=== PATIENT | female | born 1990 | race Two or more races ===

== ENCOUNTER 2016-09-11 08:51 | Outpatient (CLI) | payer MEDICAID ==
[2016-09-11 19:45] LABS: BASOPHILS % (AUTO) 0.6 %; EOSINOPHILS # (AUTO) 0.2 10^3/uL (0.0-0.7); EOSINOPHILS % (AUTO) 2.7 %; HCT - HEMATOCRIT 40.3 % (37.0-47.0); HGB - HEMOGLOBIN 12.9 g/dL (12.0-16.0); LYMPHOCYTES # (AUTO) 2.6 10^3/uL (1.5-3.5); LYMPHOCYTES % (AUTO) 34.6 %; MEAN CORPUSCULAR HEMOGLOBIN 25.6 pg (27.0-31.0); MEAN CORPUSCULAR HGB CONC 31.9 g/dL (32.0-36.0); MEAN CORPUSCULAR VOLUME 80.3 fL (81.0-99.0); MEAN PLATELET VOLUME 9.4 fL (7.9-10.8); MONOCYTES # (AUTO) 0.5 10^3/uL (0.0-1.0); NEUTROPHILS # (AUTO) 4.2 10^3/uL (1.5-6.6); NEUTROPHILS % (AUTO) 56.1 %; NUCLEATED RED BLOOD CELLS AUTO 0.1 /100WBC; RED BLOOD COUNT 5.02 10^6/uL (4.20-5.40); RED CELL DISTRIBUTION WIDTH 16.9 % (12.0-15.0); UNCORRECTED WHITE BLOOD COUNT 7.5 x10^3/uL; WHITE BLOOD COUNT 7.5 x10^3/uL (4.8-10.8)
[2016-09-11 20:14] LABS: HEMOGLOBIN A1C 0.65 g/dL
[2016-09-11 20:15] LABS: ALBUMIN/GLOBULIN RATIO 1.3 (1.0-2.2); BILIRUBIN,TOTAL 0.9 mg/dL (0.2-1.0); BUN - BLOOD UREA NITROGEN 14 mg/dL (6-20); CALCIUM 8.9 mg/dL (8.5-10.3); CARBON DIOXIDE - CO2 26 mmol/L (21-32); CHLORIDE 104 mmol/L (101-111); CHOL/HDL RATIO 5.5 (<4.4); CHOLESTEROL 160 mg/dL; CREATININE 0.8 mg/dL (0.4-1.0); GFR - MDRD 88 (>89); GLUCOSE 104 mg/dL (70-100); HDL CHOLESTEROL 29 mg/dL; POTASSIUM 3.8 mmol/L (3.5-5.0); SODIUM 138 mmol/L (135-145); TOTAL PROTEIN 7.3 g/dL (6.7-8.2); TRIGLYCERIDES 222 mg/dL; VLDL CHOLESTEROL 44 mg/dL
== END 2016-09-11 08:52 | disposition home or self-care (01) ==
LOC: LAB.N 08:51
PROVIDERS: ATTEND Physician Assistant
DX: G47.00 Insomnia, unspecified (principal); E66.01 Morbid (severe) obesity due to excess calories
CPT/HCPCS: 36415; 80053; 80061; 83036; 84443; 85025

== ENCOUNTER 2017-12-19 12:57 | Outpatient (CLI) | payer MEDICAID ==
[2017-12-19 19:31] LABS: BASOPHILS % (AUTO) 0.4 %; CALCIUM 8.9 mg/dL (8.5-10.3); CREATININE 0.7 mg/dL (0.4-1.0); EOSINOPHILS # (AUTO) 0.2 10^3/uL (0.0-0.7); EOSINOPHILS % (AUTO) 2.7 %; HGB - HEMOGLOBIN 13.7 g/dL (12.0-16.0); LYMPHOCYTES # (AUTO) 2.8 10^3/uL (1.5-3.5); LYMPHOCYTES % (AUTO) 37.6 %; MEAN CORPUSCULAR HEMOGLOBIN 27.4 pg (27.0-31.0); MEAN CORPUSCULAR HGB CONC 32.9 g/dL (32.0-36.0); MEAN CORPUSCULAR VOLUME 83.2 fL (81.0-99.0); MEAN PLATELET VOLUME 9.2 fL (7.9-10.8); MONOCYTES # (AUTO) 0.5 10^3/uL (0.0-1.0); MONOCYTES % (AUTO) 7.4 %; NEUTROPHILS # (AUTO) 3.9 10^3/uL (1.5-6.6); NEUTROPHILS % (AUTO) 51.9 %; PLT - PLATELET COUNT 281 10^3/uL (130-450); RED BLOOD COUNT 5.02 10^6/uL (4.20-5.40); RED CELL DISTRIBUTION WIDTH 14.7 % (12.0-15.0); WHITE BLOOD COUNT 7.5 x10^3/uL (4.8-10.8)
== END 2017-12-19 12:58 | disposition home or self-care (01) ==
LOC: LAB.N 12:57
PROVIDERS: ATTEND Physician Assistant Medical
DX: E11.9 Type 2 diabetes mellitus without complications (principal); J45.998 Other asthma; E66.01 Morbid (severe) obesity due to excess calories
CPT/HCPCS: 36415; 80048; 84443; 85025

== ENCOUNTER 2017-12-31 15:46 | Outpatient (CLI) | payer MEDICAID ==
[2017-12-31 19:33] LABS: HB2 TOTAL 14.3 g/dL; HEMOGLOBIN A1C 0.91 g/dL
== END 2017-12-31 15:47 | disposition home or self-care (01) ==
LOC: LAB.N 15:46
PROVIDERS: ATTEND Physician Assistant Medical
DX: E11.9 Type 2 diabetes mellitus without complications (principal)
CPT/HCPCS: 36415; 83036

== ENCOUNTER 2018-07-15 08:00 | Outpatient (CLI) | payer MEDICAID ==
[2018-07-15 20:00] LABS: HB2 TOTAL 14.6 g/dL; HEMOGLOBIN A1C 0.86 g/dL; HEMOGLOBIN A1C % 7.5 % (4.6-6.2)
== END 2018-07-15 23:59 | disposition home or self-care (01) ==
LOC: LAB.N 08:00
PROVIDERS: ATTEND Physician Assistant Medical
DX: E11.9 Type 2 diabetes mellitus without complications (principal)
CPT/HCPCS: 36415; 83036

== ENCOUNTER 2019-04-03 10:13 | Outpatient (CLI) | payer MEDICAID ==
[2019-04-03 12:19] LABS: HEMOGLOBIN A1C 0.89 g/dL
== END 2019-04-03 23:59 | disposition home or self-care (01) ==
LOC: LAB.N 10:13
PROVIDERS: ATTEND Physician Assistant Medical
DX: E11.9 Type 2 diabetes mellitus without complications (principal)
CPT/HCPCS: 36415; 83036

== ENCOUNTER 2019-05-01 10:20 | Outpatient (CLI) | payer MEDICAID ==
[2019-05-01 11:18] LABS: HGB - HEMOGLOBIN 11.9 g/dL (12.0-16.0); MEAN CORPUSCULAR HEMOGLOBIN 27.9 pg (27.0-31.0); MEAN CORPUSCULAR VOLUME 84.5 fL (81.0-99.0); MEAN PLATELET VOLUME 11.5 fL (7.9-10.8); RED BLOOD COUNT 4.27 10^6/uL (4.20-5.40); RED CELL DISTRIBUTION WIDTH 12.7 % (12.0-15.0); WHITE BLOOD COUNT 9.3 x10^3/uL (4.8-10.8)
[2019-05-01 11:46] LABS: % IRON SATURATION 6 % (20-50); IRON 25 ug/dL (28-170); TOTAL IRON BINDING CAPACITY 438 ug/dL (250-450); TRANSFERRIN 313 mg/dL (192-382)
[2019-05-01 11:47] LABS: THYROID STIMULATING HORMONE 2.76 uIU/mL (0.34-5.60)
[2019-05-01 11:53] LABS: FERRITIN 14.3 ng/mL (11.0-306.8)
== END 2019-05-01 10:21 | disposition home or self-care (01) ==
LOC: LAB 10:20
PROVIDERS: ATTEND Obstetrics & Gynecology
DX: N92.6 Irregular menstruation, unspecified (principal)
CPT/HCPCS: 36415; 82728; 83540; 84443; 84466; 85027

== ENCOUNTER 2019-05-11 15:11 | Outpatient (CLI) | payer MEDICAID ==
--- NOTE | 2019-05-12 00:52 | Ultrasound Report ---
Reason: MENSTRUAL IRREGULARITY Procedure Date: 05/11/2019 Accession Number: [id number] / [id number] Procedure: US - Pelvic w/Transvaginal CPT Code: Final Report FULL RESULT: EXAM: PELVIC ULTRASOUND EXAM DATE: 05/11/2019 03:51 PM. CLINICAL HISTORY: MENSTRUAL IRREGULARITY. COMPARISON: None. TECHNIQUE: Realtime transabdominal pelvic scan performed to identify the uterus and adnexa and as an overview of other pelvic structures, followed by transvaginal scan to provide greater detail of the uterus and adnexa, with static image documentation. FINDINGS: Uterus: 9.6 x 4.8 x 5.0 cm, volume 120.5 cc. Anteverted position. Normal overall size and echotexture. Masses: None. Endometrium: 7 mm. No focal endometrial abnormalities. Cervix: Unremarkable. Right Ovary: 4.2 x 3.3 x 2.9 cm, volume 21 cc. Normal echotexture and blood flow. Small peripheral follicles. Seen only transabdominal. Left Ovary: 4.4 x 3.8 x 2.4 cm, volume 21 cc. Normal echotexture and blood flow. Small peripheral follicles. Seen only transabdominal. Free Fluid: None. Other: None. IMPRESSION: No acute sonographic abnormalities. Enlarged bilateral ovaries, not seen on transvaginal. Suggestion of small peripheral follicles. Correlation as to the presence of PCOS. [facility]
== END 2019-05-11 15:12 | disposition home or self-care (01) ==
LOC: DI 15:11
PROVIDERS: ATTEND Obstetrics & Gynecology
DX: N92.6 Irregular menstruation, unspecified (principal)
CPT/HCPCS: 76830; 76856

== ENCOUNTER 2019-06-17 13:42 | Outpatient (CLI) | payer MEDICAID | END 2019-06-17 13:43 | disposition home or self-care (01) | LOC: COV 13:42 | PROVIDERS: ATTEND Family Medicine | DX: R05 Cough (principal); R06.02 Shortness of breath | CPT/HCPCS: 81599 ==

== ENCOUNTER 2019-07-03 09:54 | Outpatient (CLI) | payer MEDICAID ==
--- NOTE | 2019-07-04 08:55 | XRAY Report ---
Reason: ARM NUMBNESS Procedure Date: 07/03/2019 Accession Number: [id number] / [id number] Procedure: WCP - Cervical Spine w/Flex/Ext CPT Code: Final Report FULL RESULT: EXAM: CERVICAL SPINE RADIOGRAPHY EXAM DATE: 07/03/2019 01:00 PM. CLINICAL HISTORY: Arm numbness. Chronic neck pain and cervical radiculopathy. COMPARISONS: None. TECHNIQUE: 7 views. FINDINGS: AP, lateral, odontoid, bilateral oblique and flexion and extension lateral cervical spine radiographs are obtained. No evidence for acute fracture or focal bone destruction. No significant degenerative changes demonstrated radiographically. There may be a mildly reduced degree of range of motion on the stress views but there is no evidence for cervical spine instability. Allowing for variation in oblique projection, the oblique foraminal radiographs do not show clear evidence of significant bony stenosis or associated hypertrophic degenerative changes that would predict foraminal impingement. Vertebral body heights and intervertebral disk spaces are grossly maintained. No focal prevertebral edema. IMPRESSION: 1. Range of motion may be limited. 2. No evidence for instability, acute fracture or focal malalignment. 3. For symptoms of radiculopathy, consider follow-up MRI of the cervical spine to evaluate for disk herniation which would not be expected to be demonstrated radiographically. [facility]
== END 2019-07-03 23:59 | disposition home or self-care (01) ==
LOC: DI.WCP 09:54
PROVIDERS: ATTEND Physician Assistant Medical
DX: R20.0 Anesthesia of skin (principal)
CPT/HCPCS: 72052